=== PATIENT | female | born 1990 | race Two or more races ===

== ENCOUNTER 2022-04-27 05:05 | Inpatient (IN) | payer OTHER ==
[~2022-04-27] VITALS: Ht 152.4 cm; Wt 3.2 kg
[2022-04-27] MEDS ORDERED: PRENATAL TABLE1 EAC1 PO (06:05)
[2022-04-27] MEDS ORDERED: INTEGRA PLUS C1 EACH PO (06:05)
[2022-04-27] MEDS ORDERED: NIFEDIPINE20 MG PO (06:06)
== END 2022-04-29 12:50 | disposition home or self-care (01) | DRG 788 ==
LOC: OB/GYN 05:05 → LDR 05:05 → O/R 08:34 → OB/GYN 09:35
PROVIDERS: ADMIT Specialist; ATTEND Specialist
PROC: 4A1HXCZ Monitoring of Products of Conception, Cardiac Rate, External Approach (ICD-10-PCS; 2022-04-27)
PROC: 10D00Z1 Extraction of Products of Conception, Low, Open Approach (ICD-10-PCS; principal; 2022-04-27 14:00)
DX: O34.211 Maternal care for low transverse scar from previous cesarean delivery (principal); Z3A.39 39 weeks gestation of pregnancy; Z37.0 Single live birth; Z20.822 Contact with and (suspected) exposure to COVID-19